=== PATIENT | female | born 1960 | race Caucasian/White ===

== ENCOUNTER 2019-06-04 10:33 | Outpatient (CLI) | payer OTHER, SELFPAY ==
--- NOTE | ~2019-06-04 | MM_ITS ---
EXAMINATION: MM screening teddy BI w kyler HISTORY: Screening mammogram TECHNIQUE: Craniocaudal and mediolateral oblique 3-D tomosynthesis images were obtained and synthetic 2-D images were generated. CAD analysis was submitted and interpreted. COMPARISON: 05/04/2018, 04/18/2018, 04/13/2017, 03/23/2016 BREAST PARENCHYMAL COMPOSITION: The breasts are heterogeneously dense, which may obscure small masses . FINDINGS: A mass of the lower outer right breast has decreased in size since the prior examination Th ere is no evidence of suspicious mass, calcification, or architectural distortion to suggest malignan cy in either breast. There has been no suspicious interval change. IMPRESSION: 1. Decrease in size of a low-density mass of the lower-outer right breast. This mass was recommended for six month targeted ultrasound follow-up however decrease in size of the mass does not require fur ther ultrasound evaluation. 2. Recommend routine screening mammography in one year. BI-RADS Category 2: Benign finding(s). Reviewed, dictated and finalized at location A. EXIA TEACHER IMPRESSION: 1. Decrease in size of a low-density mass of the lower-outer right breast. This mass was recommended for six month targeted ultrasound follow-up however decre ase in size of the mass does not require further ultrasound evaluation. 2. Recommend routine screening mammography in one year. BI-RADS Category 2: Benign finding(s).
== END 2019-06-04 10:34 | disposition home or self-care (01) ==
PROVIDERS: PCP Family Medicine; Visit Provider Obstetrics & Gynecology
DX: Z12.31 Encounter for screening mammogram for malignant neoplasm of breast (principal)
CPT/HCPCS: 77063; 77067

== ENCOUNTER 2020-06-08 10:18 | Outpatient (CLI) | payer OTHER, SELFPAY ==
--- NOTE | ~2020-06-08 | MM_ITS ---
EXAMINATION: MM screening [facility] BI w kyler HISTORY: Screening mammogram TECHNIQUE: Craniocaudal and mediolateral oblique 3-D tomosynthesis images were obtained and synthetic 2-D images were generated. CAD analysis was submitted and interpreted. COMPARISON: 06/04/2019, 05/04/2018, 04/18/2018, 04/13/2017 BREAST PARENCHYMAL COMPOSITION: The breasts are heterogeneously dense, which may obscure small masses . FINDINGS: There is no evidence of suspicious mass, calcification, or architectural distortion to sugg est malignancy in either breast. There has been no suspicious interval change. IMPRESSION: 1. No mammographic evidence of malignancy. 2. Recommend routine screening mammography in one year. BI-RADS Category 1: Negative Reviewed, dictated and finalized at location A. RCYCLE POLICE OFFICER
== END 2020-06-08 10:19 | disposition home or self-care (01) ==
LOC: ANHIMG 10:23
PROVIDERS: PCP Family Medicine; Visit Provider Obstetrics & Gynecology
DX: Z12.31 Encounter for screening mammogram for malignant neoplasm of breast (principal)
CPT/HCPCS: 77063; 77067

== ENCOUNTER 2020-07-27 14:15 | Outpatient (CLI) | payer OTHER, SELFPAY | END 2020-07-27 14:16 | disposition home or self-care (01) | LOC: ANHCOVIDVC 14:15 | PROVIDERS: PCP Family Medicine | DX: Z23 Encounter for immunization (principal) | CPT/HCPCS: 0001A; 91300 ==

== ENCOUNTER 2020-08-17 14:05 | Outpatient (CLI) | payer OTHER, SELFPAY | END 2020-08-17 14:06 | disposition home or self-care (01) | LOC: ANHCOVIDVC 14:06 | PROVIDERS: PCP Family Medicine | DX: Z23 Encounter for immunization (principal) | CPT/HCPCS: 0002A; 91300 ==

== ENCOUNTER 2021-04-02 02:44 | Day surgery (SDC) | payer OTHER, SELFPAY ==
[2021-03-23 14:45] VITALS: BMI 30.5
--- NOTE | 2021-04-01 13:50 | PM.HPGS ---
History of Present Illness History of Present Illness Consent: Risks, benefits, and alternatives have been discussed and questions answered. Patient agrees to proceed with procedure. Chief complaint: neoplasm screening Narrative: Sandra Barros is a 60 year old female Referred for colon cancer screening. Her last colonoscopy was 10 years ago Review of Systems Review of Systems: All systems reviewed & are unremarkable except as noted in HPI and below PMFSH Past Medical History Medical History Calculus of ureter Sacroiliac joint pain Sciatica Surgical History Surgical History H/O lithotripsy H/O: hysterectomy Family History Family History Mother Family history of dementia Hypertension Sibling Family history of atrial fibrillation Family history of heart disease in male family member before age 55 Father Patient's father is Family history of malignant neoplasm of bone Other Family history of allergic disorder Family history of cardiovascular disease Family history of hypercholesterolemia Family history of malignant neoplasm of breast Social History Social History Smoking status: Never smoker Alcohol intake: never Living arrangements: alone Spiritual care concerns: No Meds Home Medications and Allergies Home Medications Medication Instructions Recorded Confirmed Type [place] 3 2 cap PO DAILY 03/23/21 04/02/21 History ascorbic acid (vitamin C) 500 mg PO DAILY 03/23/21 04/02/21 History biotin 5,000 mcg SUBLINGUAL DAILY 03/23/21 04/02/21 History cholecalciferol (vitamin D3) 50 mcg PO DAILY 03/23/21 04/02/21 History [Vitamin D3] lactobacillus combination no.8 3,000,000 cell PO DAILY 03/23/21 04/02/21 History [Adult Probiotic] Allergies Allergy/AdvReac Type Severity Reaction Status Date / Time No Known Allergies Allergy Verified 04/02/21 08:43 Exam Const: General: alert Orientation/consciousness: patient oriented x3 Resp: Auscultation: clear to auscultation bilaterally Cardio: Rhythm: regular rhythm GI: GI Palp: Yes Soft to palpation and No Tenderness to palpation present (GI) Neuro: General: patient oriented x3 Assessment and Plan Assessment and plan (1) Colon cancer screening: Code(s): Z12.11 - Encounter for screening for malignant neoplasm of colon Status: Acute Assessment and Plan: Colonoscopy with possible biopsy or polypectomy or cautery or injection of substances.
[2021-04-02 08:44] VITALS: BP 132/80; PULSE 93; RESP 17; TEMP 36.4; O2SAT 97; BMI 31.8
[2021-04-02] MEDS: LACTATED RINGERS 1,000 ML 150 ML IV CONT (08:47)
--- NOTE | 2021-04-02 09:05 | P.PNAN_ITS ---
Anes - Initial Pre Proc Eval Procedure: Operation Date: 04/02/21 10:00 Proposed Procedures p Screening Colonoscopy - Fei Bal MD Date/Time: 04/02/21 09:05 Surgeon: Fei Bal MD Pre Op Diagnosis: neoplasm screening Patient Data Age: 60 Gender: F Height: 1.52 m Weight: 74 kg Last Vital Signs Temp 36.4 C 04/02/21 08:44 Pulse 93 04/02/21 08:44 Resp 17 04/02/21 08:44 BP 132/80 04/02/21 08:44 Pulse Ox 97 04/02/21 08:44 Allergies Allergy/AdvReac Type Severity Reaction Status Date / Time No Known Allergies Allergy Verified 04/02/21 08:43 Home Medications Medication Instructions Recorded Confirmed Type Plaza 3 2 cap PO DAILY 03/23/21 04/02/21 History ascorbic acid (vitamin C) 500 mg PO DAILY 03/23/21 04/02/21 History biotin 5,000 mcg SUBLINGUAL DAILY 03/23/21 04/02/21 History cholecalciferol (vitamin D3) 50 mcg PO DAILY 03/23/21 04/02/21 History [Vitamin D3] lactobacillus combination no.8 3,000,000 cell PO DAILY 03/23/21 04/02/21 History [Adult Probiotic] Patient hx anesthesia problems: none Family hx anesthesia problems: none Results Review: All pre-operative results and documents have been reviewed as part of the pre-operative evaluation. [facility] Past Medical History Medical History (Updated 04/01/21 @ 13:50 by Fei Bal MD) Calculus of ureter Sacroiliac joint pain Sciatica Surgical History Surgical History (Updated 04/02/21 @ 09:08 by Rambo Martini MD) H/O lithotripsy H/O: hysterectomy Family History Family History Mother Family history of dementia Hypertension Sibling Family history of atrial fibrillation Family history of heart disease in male family member before age 55 Father Patient's father is Family history of malignant neoplasm of bone Other Family history of allergic disorder Family history of cardiovascular disease Family history of hypercholesterolemia Family history of malignant neoplasm of breast Social History Social History Smoking status: Never smoker Alcohol intake: never Living arrangements: alone Spiritual care concerns: No Anes - Eval Final PreProcedure Day of Procedure 04/02/21 09:05 Patient weight: obese Heart: regular rate and rhythm Lungs: clear to auscultation Airway: Mallampati scale class II Neurological: alert and oriented Last oral intake: >/= 8 hours ASA classification: II Emergent: no Anesthetic plan: proceed Anesthesia type and monitoring: general GIVS and standard monitoring Results Review: All pre-operative results and documents have been reviewed as part of the pre-operative evaluation. Informed Consent: The patient's anesthetic plan and its attendant risks and benefits were discussed with the patient/family/POA. Questions were solicited and answers provided to the satisfaction of the patient/family/POA.
[2021-04-02 10:04] VITALS: BP 96/60; PULSE 79; RESP 22; O2SAT 97
[2021-04-02 10:14] VITALS: BP 113/71; PULSE 72; RESP 22; O2SAT 98
[2021-04-02 10:24] VITALS: BP 135/78; PULSE 68; RESP 18; O2SAT 100
== END 2021-04-02 10:35 | disposition home or self-care (01) ==
PROVIDERS: PCP Family Medicine; Visit Provider Internal Medicine Gastroenterology
PROC: 0DJD8ZZ Inspection of Lower Intestinal Tract, Via Natural or Artificial Opening Endoscopic (ICD-10-PCS; CPT 45378; principal; 2021-04-02 10:00)
DX: Z12.11 Encounter for screening for malignant neoplasm of colon (principal); K57.30 Diverticulosis of large intestine without perforation or abscess without bleeding; E66.9 Obesity, unspecified; Z68.31 Body mass index [BMI] 31.0-31.9, adult
CPT/HCPCS: 45378; J2001; J2704; J7120

== ENCOUNTER 2021-06-09 14:18 | Outpatient (CLI) | payer OTHER, SELFPAY ==
--- NOTE | ~2021-06-09 | MM_ITS ---
EXAMINATION: MM screening teddy BI w kyler HISTORY: Screening mammogram TECHNIQUE: Craniocaudal and mediolateral oblique 3-D tomosynthesis images were obtained and synthetic 2-D images were generated. CAD analysis was submitted and interpreted. COMPARISON: June 08, 2020, June 04, 2019 bilateral screening mammogram examinations 11/27/2018, 05/29/2018 limited right breast ultrasound 05/04/2018 diagnostic right mammogram and limited right breast ultrasound BREAST PARENCHYMAL COMPOSITION: There are scattered areas of fibroglandular density. FINDINGS: Scattered bilateral benign calcifications. There is no evidence of suspicious mass, calcifi cation, or architectural distortion to suggest malignancy in either breast. There has been no suspici ous interval change. IMPRESSION: 1. No mammographic evidence of malignancy. 2. Recommend routine screening mammography in one year. BI-RADS Category 2: Benign finding(s). Reviewed, dictated and finalized at location A. TE SENSING SPECIALIST
== END 2021-06-09 14:19 | disposition home or self-care (01) ==
LOC: ANHIMG 14:21
PROVIDERS: PCP Family Medicine; Visit Provider Obstetrics & Gynecology
DX: Z12.31 Encounter for screening mammogram for malignant neoplasm of breast (principal)
CPT/HCPCS: 77063; 77067

== ENCOUNTER 2021-08-09 11:09 | Outpatient (CLI) | payer OTHER, SELFPAY ==
--- NOTE | 2021-08-12 16:43 | WPDHOLTEREM ---
Holter/Event Monitor Holter/Event Monitor Date of procedure: 08/09/21 Holter/Event Procedure: 48 Hr Holter Monitor Indications: Cardiac arrhythmias Conclusion: 1. 48 hour holter monitor on 08/09/21. 2. Underlying rhythm is sinus rhythm. HR range 50-118 bpm; average HR 75 bpm. 3. There are 23 premature supraventricular complexes and 1 supraventricular couplet. No supraventricular tachycardia. 4. No premature ventricular complexes. No ventricular tachycardia. 5. No sinoatrial or atrioventricular blocks. No significant pauses greater than 2 seconds. 6. No symptoms available for correlation.
== END 2021-08-09 11:10 | disposition home or self-care (01) ==
LOC: ANHCARD 11:12
PROVIDERS: PCP Family Medicine; Visit Provider Family Medicine
DX: I49.9 Cardiac arrhythmia, unspecified (principal)
CPT/HCPCS: 93225; 93226

== ENCOUNTER 2022-02-09 13:43 | Outpatient (NON) | payer OTHER, SELFPAY ==
[2022-02-09 20:28] LABS: IFOB Positive Control Positive; Immunochemical Fecal Occult Bl Positive (N)
== END 2022-02-09 13:44 | disposition home or self-care (01) ==
LOC: ANHGOSHLAB 13:45
PROVIDERS: PCP Family Medicine; Visit Provider Family Medicine
DX: Z12.11 Encounter for screening for malignant neoplasm of colon (principal)
CPT/HCPCS: 82274

== ENCOUNTER → 2022-02-28 09:42 | Outpatient (CLI) | payer OTHER, SELFPAY ==
--- NOTE | ~2022-02-28 | DEXA_ITS ---
Bone Density Report Name: TOMAS LANIER Age: 61 Sex: Female Ethnicity: White Date of : 1960 Indication: postmenopausal; screening for osteoporosis; height loss; hysterectomy; Referring Provider: CURTIS CORDERO Study: Bone densitometry was performed. Exam Date: February 28, 2022 Accession number: [id number] Bone Density: Region BMD T-score Z-score Classification AP Spine (L1-L4) 0.808 -2.2 -0.5 Osteopenia Femoral Neck (Left) 0.587 -2.4 -0.9 Osteopenia Total Hip (Left) 0.845 -0.8 0.4 Normal Femoral Neck (Right) 0.642 -1.9 -0.4 Osteopenia Total Hip (Right) 0.836 -0.9 0.3 Normal Total Hip Mean 0.841 -0.9 0.4 Normal World Health Organization criteria for BMD impression classify patients as: Normal (T-score at or above -1.0), Osteopenia (T-score between -1.0 and -2.5), or Osteoporosis (T-score at or below -2.5). 10-year Fracture Risk(1): Major Osteoporotic Fracture 11% Hip Fracture 1.9% Reported Risk Factors: [place] (), Neck BMD=0.587, BMI=32.9 (1) FRAX(R) Version 3.08. Fracture probability calculated for an untreated patient. Fracture probability may be lower if the patient has received treatment. Clinical Information Provided by Patient: Has used the following medications: Vitamin D Has the following medical conditions: Hysterectomy Patient maximum height was 61.5 Menopause Age: 50 No regular weight bearing exercise Drinks caffeinated beverages Onset of menses at age 10 Number of children 2 Impression: The patient has low bone mass, based on the Left Femoral Neck T-score. The patient has an estimated ten-year risk of hip fracture of 1.9% and an estimated ten-year risk of major fracture of 11%, based on the WHO FRAX algorithm. Discussion: BONE DENSITY IS LOW AT ONE OR MORE SKELETAL SITES. This patient's lowest T-score is low at one or more skeletal sites. It meets the World Health Organization's (WHO) criteria for ?low bone mass? (T-score between -1.0 and -2.5). The patient's 10-year risk of fracture as calculated by FRAX is less than the threshold where pharmacological therapy is recommended by the National Osteoporosis Foundation (NOF). However, all treatment decisions require clinical judgment and consideration of individual patient factors, including patient preferences, comorbidities, previous drug use, risk factors not captured in the FRAX model (e.g., frailty, falls, vitamin D deficiency, increased bone turnover, interval significant decline in bone density) and possible under or overestimation of fracture risk by FRAX. The patient should follow a healthful lifestyle (good nutrition with adequate calcium and vitamin D, and appropriate weight-bearing exercise). Follow-Up: Consider repeating this study in 2 to 3 years to reassess this patient's status, or sooner if th
== END ==
PROVIDERS: PCP Obstetrics & Gynecology; Visit Provider Family Medicine
DX: Z78.0 Asymptomatic menopausal state (principal); M85.89 Other specified disorders of bone density and structure, multiple sites
CPT/HCPCS: 77080

== ENCOUNTER 2022-04-05 14:25 | Outpatient (NON) | payer OTHER, SELFPAY ==
[2022-04-05 17:51] LABS: IFOB Positive Control Positive; Immunochemical Fecal Occult Bl Negative (N)
== END 2022-04-05 14:26 | disposition home or self-care (01) ==
LOC: ANHGOSHLAB 14:26
PROVIDERS: PCP Obstetrics & Gynecology; Visit Provider Family Medicine
DX: R19.5 Other fecal abnormalities (principal)
CPT/HCPCS: 82274

== ENCOUNTER → 2022-05-05 11:50 | Outpatient (CLI) | payer OTHER, SELFPAY ==
--- NOTE | ~2022-05-05 | US_ITS ---
US abdomen limited DATE: 05/05/2022 12:04 INDICATION: Elevated liver enzymes TECHNIQUE: Real-time imaging of liver, pancreas, gallbladder COMPARISON: 02/14/2013 CT abdomen pelvis FINDINGS: No hepatic or pancreatic space-occupying mass lesion is evident. There is hepatic steatosis . Normal hepatopedal portal venous flow direction. No gallstones or gallbladder wall thickening. Negative sonographic Pisano's sign. The common bile sharita t measures 3.4 mm, normal. IMPRESSION: Hepatic steatosis Reviewed, dictated and finalized at Location A. Reviewed, dictated and finalized at location L. IKSHA DRIVER IMPRESSION: Hepatic steatosis
== END ==
PROVIDERS: PCP Family Medicine; Visit Provider Family Medicine
DX: R79.89 Other specified abnormal findings of blood chemistry (principal); K76.0 Fatty (change of) liver, not elsewhere classified
CPT/HCPCS: 76705

== ENCOUNTER 2022-07-05 15:29 | Outpatient (CLI) | payer OTHER, SELFPAY ==
--- NOTE | ~2022-07-05 | MM_ITS ---
EXAMINATION: MM screening teddy BI w kyler HISTORY: Screening TECHNIQUE: Craniocaudal and mediolateral oblique 3-D tomosynthesis images were obtained and synthetic 2-D images were generated. CAD analysis was submitted and interpreted. COMPARISON: Comparison to multiple prior studies sequentially, with oldest reviewed study dated 03/18. BREAST PARENCHYMAL COMPOSITION: There are scattered areas of fibroglandular density. FINDINGS: There are developing asymmetries with possible architectural distortion in the upper centra l aspect of the right breast. The left breast is stable without evidence for malignancy. IMPRESSION: 1. Developing right breast asymmetries. 2. Additional mammographic views and possible breast ultrasound are recommended. BI-RADS Category 0: Incomplete: Needs additional imaging evaluation. Reviewed, dictated and finalized at location A. IMPRESSION: 1. Developing right breast asymmetries. 2. Additional mammographic views and possible breast ultrasound are recommended . BI-RADS Category 0: Incomplete: Needs additional imaging evaluation.
== END 2022-07-05 15:30 | disposition home or self-care (01) ==
LOC: ANHIMG 15:31
PROVIDERS: PCP Family Medicine; Visit Provider Obstetrics & Gynecology
DX: Z12.31 Encounter for screening mammogram for malignant neoplasm of breast (principal); R92.8 Other abnormal and inconclusive findings on diagnostic imaging of breast
CPT/HCPCS: 77063; 77067

== ENCOUNTER 2022-07-25 13:31 | Outpatient (CLI) | payer OTHER, SELFPAY ==
--- NOTE | ~2022-07-25 | MMUS_ITS ---
EXAMINATION: MM diagnostic teddy RT w kyler, US breast RT complete HISTORY: TECHNIQUE: Additional 3-D tomosynthesis images of were performed and synthetic 2-D images were genera susan. CAD analysis was submitted and interpreted. High resolution breast ultrasound was performed. COMPARISON: None FINDINGS: MAMMOGRAPHIC FINDINGS: Possible approximately 7 x 10 mm mass is suggested anteriorly in the upper right breast anteriorly in the upper outer quadrant, on spot Tomosynthesis (image 25/74). There are scattered benign calcifications. ULTRASOUND: 12:00 4 cm from nipple: Circumscribed sonolucency consistent with benign 3.5 x 2.7 x 3.5 mm cyst 12:00 3 cm from nipple: 4.1 x 3.3 x 4.1 mm cyst 8:00 6 cm from nipple: 2.7 x 1.9 x 2.5 mm hyperechoic lesion, likely a small lipoma 10:00 4 cm from nipple: Parallel circumscribed 7 x 5 x 3.4 x 8.2 mm sonolucency with through transmis dave consistent with simple cyst There is no evidence of focal abnormal solid or cystic lesion in the vicinity of the IMPRESSION: 1. Benign findings 2. Routine annual mammographic screening is recommended BI-RADS Category 2: Benign finding(s). Reviewed, dictated and finalized at location A. IMPRESSION: 1. Benign findings 2. Routine annual mammographic screening is recommended BI-RADS Category 2: Benign finding(s).
== END 2022-07-25 13:32 | disposition home or self-care (01) ==
LOC: ANHIMG 13:33
PROVIDERS: PCP Family Medicine; Visit Provider Obstetrics & Gynecology
DX: R92.8 Other abnormal and inconclusive findings on diagnostic imaging of breast (principal)
CPT/HCPCS: 76641; 77061; 77065; G0279

== ENCOUNTER 2023-08-16 13:11 | Outpatient (CLI) | payer MEDICARE, SELFPAY ==
--- NOTE | ~2023-08-16 | DEXA_ITS ---
? Bone Density Report? Name:? TOMAS LANIER Patient ID:??? [id number] Age:? 63 Sex:? Female Ethnicity:? White Date of : 1960 Indication: postmenopausal; screening for osteoporosis; height loss; prior fracture; hysterectomy; Referring Provider: EDDIE LEBRON Study: Bone densitometry was performed. Exam Date: August 16, 2023 Accession number: [id number] Bone Density: Region? BMD??? T-score? Z-score?? Classification AP Spine(L1-L4)? 0.773?? -2.5? -0.7? Osteoporosis Femoral Neck (Left)? 0.598?? -2.3? -0.7? Osteopenia Total Hip (Left)? 0.841?? -0.8? 0.4? Normal Femoral Neck (Right)? 0.601?? -2.2? -0.7? Osteopenia Total Hip (Right)? 0.807?? -1.1? 0.1? Osteopenia Femoral Neck Mean? 0.599?? -2.2? -0.7? Osteopenia Total Hip Mean? 0.824?? -1.0? 0.3? Normal World Health Organization criteria for BMD impression classify patients as: Normal (T-score at or above -1.0), Osteopenia (T-score between -1.0 and -2.5), or Osteoporosis (T-score at or below -2.5). 10-year Fracture Risk: FRAX not reported because: ? Some T-score for Spine Total or Hip Total or Femoral Neck at or below -2.5 Clinical Information Provided by Patient: Has had a low trauma fracture Has used the following medications: Vitamin D, Calcium Has the following medical conditions: Hysterectomy Patient maximum height was 62 Menopause Age: 40 Onset of menses at age 11 Number of children 2 Impression: The patient has established osteoporosis, based on the Total Spine T-score and the existence of a prior fracture. The patient has risk factors, including: previous fracture. Discussion: HIGH RISK OF FRACTURE. BONE DENSITY IS UNDESIRABLY LOW AT ONE OR MORE SKELETAL SITES, CONSISTENT WITH POSTMENOPAUSAL OSTEOPOROSIS. This patient's lowest T-score, in a patient who has previously fractured, meets the World Health Organization's (WHO) criteria for severe osteoporosis. In untreated patients, the risk of osteoporotic fracture increases approximately two-fold for each 1.0 SD decrease in T-score.? Low bone density is not the only risk factor for fracture; also consider factors such as patient's age, frailty or poor health, risk of falling, risk of injury, previous osteoporotic fracture, family history of osteoporosis, cigarette smoking, low body weight, etc.? Not everyone with low bone mineral density has osteoporosis; osteomalacia and other metabolic bone disorders should also be considered. Patients who have osteoporosis should be evaluated for specific diseases and conditions (secondary causes) that may cause or contribute to bone loss.? The [place] Association of Clinical Endocrinologists (AACE) and National Osteoporosis Foundation (NOF) recommend pharmacologic intervention for all postmenopausal women whose T-score is in this range. The patient should follow a healthful lifestyle (good nutrition with adequate calcium and vitamin D, and appropriate weight-bearing exerci
--- NOTE | ~2023-08-16 | MM_ITS ---
EXAMINATION: MM screening teddy BI w kyler HISTORY: Screening TECHNIQUE: Craniocaudal and mediolateral oblique 3-D tomosynthesis images were obtained and synthetic 2-D images were generated. CAD analysis was submitted and interpreted. COMPARISON: Comparison to multiple prior studies sequentially, with oldest reviewed study dated 05/04. BREAST PARENCHYMAL COMPOSITION: Dense: The breasts are heterogeneously dense, which may obscure small masses FINDINGS: There are developing bilateral breast asymmetries in the upper central aspect of the right breast and centered in the outer aspect of the left breast. There are no suspicious calcifications. IMPRESSION: 1. Developing bilateral breast asymmetries. 2. Additional mammographic views and possible breast ultrasound are recommended. BI-RADS Category 0: Incomplete: Needs additional imaging evaluation. Reviewed, dictated and finalized at location B. IMPRESSION: 1. Developing bilateral breast asymmetries. 2. Additional mammographic views and possible breast ultrasound are recommended . BI-RADS Category 0: Incomplete: Needs additional imaging evaluation.
== END 2023-08-16 13:12 | disposition home or self-care (01) ==
LOC: CHSIMG 13:12
PROVIDERS: PCP Family Medicine; Visit Provider Nurse Practitioner Family
DX: Z12.31 Encounter for screening mammogram for malignant neoplasm of breast (principal); Z78.0 Asymptomatic menopausal state; R92.8 Other abnormal and inconclusive findings on diagnostic imaging of breast; M85.89 Other specified disorders of bone density and structure, multiple sites; M81.0 Age-related osteoporosis without current pathological fracture
CPT/HCPCS: 77063; 77067; 77080

== ENCOUNTER 2023-08-18 10:21 | Outpatient (CLI) | payer MEDICARE, SELFPAY ==
--- NOTE | ~2023-08-18 | MMUS_ITS ---
EXAMINATION: MM diagnostic teddy BI w kyler, US breast BI complete HISTORY: Developing bilateral mammographic asymmetry as reported on 08/16/2023 screening mammogram TECHNIQUE: Additional 3-D tomosynthesis images of both breasts were performed and synthetic 2-D image s were generated. CAD analysis was submitted and interpreted. High resolution complete bilateral jacqueline st ultrasound examination including all 4 quadrants and subareolar area of each breast was performed. COMPARISON: 08/16/2023 bilateral screening mammogram 4. diagnostic right mammogram incomplete right breast ultrasound 07/05/2022 bilateral screening mammogram 06/09/2021 bilateral screening mammogram FINDINGS: MAMMOGRAPHIC FINDINGS: Scattered bilateral benign calcifications. No suspicious mass, architectural distortion, malignant calcification, skin thickening or retraction of either breast is detected. ULTRASOUND: Right breast: No suspicious mass or shadowing. 1:00 1 cm from nipple: 6.4 x 5.1 x 6.6 mm cyst, no internal vascularity or posterior shadowing 1:00 near nipple: 2.5 x 2.9 x 3.3 mm cyst 7:00 5 cm from nipple: 2.7 x 2.5 x 3.1 mm circumscribed hyperechoic lesion without internal vasculari ty or posterior shadowing, benign in appearance 10:00 2 cm from nipple: 9.3 x 7.7 x 3.2 mm cyst Left breast: No suspicious mass or shadowing. IMPRESSION: 1. Benign findings 2. Routine annual mammographic screening is recommended BI-RADS Category 2: Benign finding(s). Reviewed, dictated and finalized at location A. IMPRESSION: 1. Benign findings 2. Routine annual mammographic screening is recommended BI-RADS Category 2: Benign finding(s).
== END 2023-08-18 10:22 | disposition home or self-care (01) ==
LOC: CHSIMG 10:21
PROVIDERS: PCP Family Medicine; Visit Provider Obstetrics & Gynecology
DX: R92.8 Other abnormal and inconclusive findings on diagnostic imaging of breast (principal)
CPT/HCPCS: 76641; 77062; 77066; G0279

== ENCOUNTER 2024-09-03 14:45 | Outpatient (CLI) | payer MEDICARE, SELFPAY ==
--- NOTE | ~2024-09-03 | MM_ITS ---
EXAMINATION: MM screening teddy BI w kyler HISTORY: Screening TECHNIQUE: Craniocaudal and mediolateral oblique 3-D tomosynthesis images were obtained and synthetic 2-D images were generated. CAD analysis was submitted and interpreted. COMPARISON: Comparison to multiple prior studies sequentially, with oldest reviewed study dated 06/08. BREAST PARENCHYMAL COMPOSITION: Dense: The breasts are heterogeneously dense, which may obscure small masses FINDINGS: There is a new mass in the upper central aspect of the right breast, middle-posterior depth . The left breast is stable without evidence for malignancy. IMPRESSION: 1. New partially obscured mass upper central right breast, middle-posterior depth. 2. Additional mammographic views and possible breast ultrasound are recommended. BI-RADS Category 0: Incomplete: Needs additional imaging evaluation. Reviewed, dictated and finalized at location B. IMPRESSION: 1. New partially obscured mass upper central right breast, middle-posterior dep th. 2. Additional mammographic views and possible breast ultrasound are recommended . BI-RADS Category 0: Incomplete: Needs additional imaging evaluation.
--- OUTSIDE RECORDS SUMMARY | 2024-09-03 14:50 | XMS_ITS | Clinical Summary ---
Author Organization [facility] Address [address] [place] [address] Care Team Providers Care Bioprocess Engineer Name Role Phone Anna Whipple MD Primary Care Provider [phone] Source Comments [facility],non-owned Affiliates and Associated Physician Practices is amultiple site organization consisting of ambulatory clinics and hospital sitesin [place], [place], [place] and [place]. This disclosure is being madepursuant to the Care Everywhere program and may not contain all information available regarding this patient. Last updated 18.[facility] Allergies No known active allergies Social History Tobacco Use Types Packs/Day Years Used Date Smoking Tobacco: Never Assessed Comments Unknown Sex and Gender Information Value Date Recorded Sex Assigned at Not on file Legal Sex Female 9:03 AM CDT Gender Identity Not on file Sexual Orientation Not on file Last Filed Vital Signs Vital Sign Reading Time Taken Comments Blood Pressure 138/78 01/14/2018 3:29 PM CDT Pulse 88 01/14/2018 3:29 PM CDT Temperature 37.1 C (98.7 F) 01/14/2018 3:29 PM CDT Respiratory Rate - - Oxygen Saturation 98% 01/14/2018 3:29 PM CDT Inhaled Oxygen Concentration - - Weight 68 kg (150 lb) 01/14/2018 3:29 PM CDT Height 154.9 cm (5' 1 ) 01/14/2018 3:29 PM CDT Body Mass Index 28.34 01/14/2018 3:29 PM CDT Plan of Treatment Health Maintenance Due Date Last Done Comments BONE DENSITY TESTING 1960 COLOGUARD (AGES 45-75) - COL ON CA SCREENING 1960 COLON MONITORING 1960 COLONOSCOPY - COLON CA SCREENING 1960 CT COLONOGRAPHY - COLON CA SCREENING 1960 Colorectal Cancer Screening 1960 FIT - COLON CA SCREENING 1960 FLEX SIG - COLON CA SCREENING 1960 LIPID TESTING 1960 MAMMOGRAM 1960 HEPATITIS C SCREENING 04/09/1976 DTAP/TDAP/TD VACCINES (1 - Tdap) 1977 PNEUMOCOCCAL VACCINE 50+ (1 of 1 - PCV) 2008 ZOSTER VACCINE (1 of 2) 2008 SCREENING FOR DIABETES 01/14/2018 COVID-19 VACCINE (1 - 2023-2 5 season) 2023 DEPRESSION SCREENING 04/17/2024 INFLUENZA VACCINE (Season Ended) 2024 Respiratory Syncytial Virus (RSV) Vaccine Pt: or over 60 yrs (1 - 1-dose 75+ series) 2033 HEPATITIS B VACCINE Aged Out No longe r eligible based on patient's age to complete this topic HIB VACCINE Aged Out No longer eligi ble based on patient's age to complete this topic HPV VACCINE Aged Out No longer eligi ble based on patient's age to complete this topic MENINGOCOCCAL (Group B) VACC INE SHARED DECISION-MAKING Aged Out No longer eligibl e based on patient's age to complete this topic MENINGOCOCCAL GROUPS A/C/Y/W VACCINE Aged Out No longer eligible b ased on patient's age to complete this topic Insurance [facility] Care Teams Bioprocess Engineer Relationship Specialty Start Date End Date Anna Whipple MD [address] [place] [id number] PCP - General Family Medicine 01/14/18
== END 2024-09-03 14:46 | disposition home or self-care (01) ==
LOC: CHSIMG 14:47
PROVIDERS: PCP Family Medicine; Visit Provider Obstetrics & Gynecology
DX: Z12.31 Encounter for screening mammogram for malignant neoplasm of breast (principal); R92.8 Other abnormal and inconclusive findings on diagnostic imaging of breast
CPT/HCPCS: 77063; 77067

== ENCOUNTER 2024-09-17 09:33 | Outpatient (CLI) | payer MEDICARE, SELFPAY ==
--- NOTE | ~2024-09-17 | MMUS_ITS ---
MM DIAGNOSTIC YUE RT W BERE AND US BREAST RT LIMITED INDICATION: 64-year old female; BI-RADS 0, new partially obscured mass upper central right breast. COMPARISON: 09/03/2024 TECHNIQUE: Digital breast tomosynthesis True lateral and spot compression CC and MLO views of the RIG HT breast were obtained with computer-aided detection to assist in interpretation of the study. FINDINGS: The breasts are heterogeneously dense, which may obscure small masses. The mass of concern in the superior central right breast persists as a prescribed mass. Ultrasound wa s performed for further evaluation. RIGHT BREAST ULTRASOUND FINDINGS: Targeted evaluation of the area of concern was completed. There is a 0.8 x 0.8 x 0.8 cm anechoic mass at 12:00 location 7 cm from the nipple in the RIGHT breast that correlates to the area of Mammograph ic finding. Additional simple cyst is seen at 12:00, 3 cm from the nipple to measure 0.7 x 0.5 x 0.5 cm. IMPRESSION: Benign RIGHT breast simple cyst at 12:00, 7 cm from the nipple correlates to mammographic finding. No further investigation necessary. Additional cyst also seen at 12:00. RECOMMENDATION: ANNUAL SCREENING BILATERAL MAMMOGRAPHY BI-RADS 2, BENIGN Reviewed, dictated and finalized at location B. IMPRESSION: Benign RIGHT breast simple cyst at 12:00, 7 cm from the nipple correlates to ma mmographic finding. No further investigation necessary. Additional cyst also se en at 12:00. RECOMMENDATION: ANNUAL SCREENING BILATERAL MAMMOGRAPHY BI-RADS 2, BENIGN
--- OUTSIDE RECORDS SUMMARY | 2024-09-17 09:53 | XMS_ITS | Clinical Summary ---
Author Organization [facility] Address [address] [place] [address] Care Team Providers Care Fund Accountant Name Role Phone Anna Whipple MD Primary Care Provider [phone] Source Comments [facility],non-owned Affiliates and Associated Physician Practices is amultiple site organization consisting of ambulatory clinics and hospital sitesin [place], [place], [place] and [place]. This disclosure is being madepursuant to the Care Everywhere program and may not contain all information available regarding this patient. Last updated 18.[facility] Allergies No known active allergies Social History [...] 3:29 PM CDT Height 154.9 cm (5' 1) 01/14/2018 3:29 PM CDT Body Mass Index [...] patient's age to complete this topic Insurance [facility] Care Teams Fund Accountant Relationship Specialty Start Date End Date Anna Whipple MD [address] [place] [id number] PCP - General Family Medicine 01/14/18
== END 2024-09-17 09:34 | disposition home or self-care (01) ==
PROVIDERS: PCP Family Medicine; Visit Provider Obstetrics & Gynecology
DX: R92.8 Other abnormal and inconclusive findings on diagnostic imaging of breast (principal)
CPT/HCPCS: 76642; 77061; 77065; G0279